=== PATIENT | male | born 1955 | race Caucasian/White ===

== ENCOUNTER 2017-10-03 10:10 | Emergency (ER) | payer OTHER ==
[~2017-10-03] VITALS: Ht 175.3 cm; Wt 110.0 kg
[2017-10-03 10:13] VITALS: BP 197/109; PULSE 92; RESP 16; TEMP 98.9; O2SAT 95
[2017-10-03] MEDS ORDERED: BACL10TA PO (10:31)
[2017-10-03] MEDS ORDERED: SPIRCAP INH (10:31)
[2017-10-03] MEDS ORDERED: ATEN50TA PO (10:31)
[2017-10-03] MEDS ORDERED: MELO15TA20 PO (10:31)
[2017-10-03] MEDS ORDERED: GABA100C4 PO (10:31)
[2017-10-03] MEDS ORDERED: SYMB160A INH (10:31)
[2017-10-03] MEDS ORDERED: OMEP20TA93 PO (10:31)
[2017-10-03] MEDS ORDERED: ALBU.5I NEB (10:31)
[2017-10-03 10:34] VITALS: BP 180/97; PULSE 82; RESP 18; O2SAT 97
[2017-10-03 10:36] VITALS: BP 171/96; PULSE 81
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
[2017-10-03] MEDS ORDERED: RESP: ALBUTEROL 2.5 MG/IPRATROPIUM 0.5 MG NEB (SCH) INH ONE (11:15)
[2017-10-03] MEDS ORDERED: predniSONE 20 MG TAB PO ONE (11:15)
[2017-10-03] MEDS ORDERED: AZIT500T2 PO (11:44)
[2017-10-03] MEDS ORDERED: PRED-503 PO (11:44)
== END 2017-10-03 11:58 | disposition home or self-care (01) ==
LOC: NEPD 10:10
DX: B34.9 Viral infection, unspecified (principal); J44.1 Chronic obstructive pulmonary disease with (acute) exacerbation; I10 Essential (primary) hypertension; F17.210 Nicotine dependence, cigarettes, uncomplicated; Z79.899 Other long term (current) drug therapy
CPT/HCPCS: 87804; 94664; 99283; J7512